=== PATIENT | male | born 1950 | race Caucasian/White ===

== ENCOUNTER 2024-10-31 10:43 | Outpatient (CLI) | payer MEDICARE, OTHER | END 2024-10-31 10:44 | disposition home or self-care (01) | LOC: MRI 10:43 | PROVIDERS: ATTEND Student in an Organized Health Care Education/Training Program | DX: H49.21 Sixth [abducent] nerve palsy, right eye (principal); R90.82 White matter disease, unspecified; I73.9 Peripheral vascular disease, unspecified | CPT/HCPCS: 36415; 70553; 76376; 82565 ==